=== PATIENT | female | born 1950 | race Caucasian/White ===

== ENCOUNTER 2018-11-12 14:13 | Outpatient (CLI) | payer MEDICARE, OTHER ==
[~2018-11-12] VITALS: Ht 154.9 cm; Wt 62.6 kg
[2018-11-12 14:47] VITALS: BP 132/48
[2018-11-12] MEDS ORDERED: ASPIRIN EC81 MG ORAL (14:57)
[2018-11-12] MEDS ORDERED: SIMVASTATIN10 MG ORAL (14:57)
[2018-11-12] MEDS ORDERED: DEXILANT60 MG ORAL (14:57)
--- NOTE | 2018-11-14 17:00 | Consultation ---
DATE OF CONSULTATION: 11/13/2018 CHIEF COMPLAINT: Gastric polyps. HISTORY OF PRESENT ILLNESS: This is a very pleasant 68-year-old female, who had endoscopy by Dr. Dinh, who had multiple large gastric polyps over centimeter. The patient was referred to us for possible endoscopy and polypectomy. PAST MEDICAL HISTORY: 1. Hypercholesterolemia. 2. Chronic GERD. 3. Gastric polyps. PAST SURGICAL HISTORY: None. MEDICATIONS: Currently on Dexilant, simvastatin, and aspirin. ALLERGIES: Codeine. FAMILY HISTORY: Mother had cancer. Sister has gastric cancer. SOCIAL HISTORY: The patient denies any tobacco, alcohol, or illicit drug abuse. REVIEW OF SYSTEMS: A 10-point review of systems was performed and pertinent positives in HPI. PHYSICAL EXAMINATION: VITAL SIGNS: Temperature 98.2, blood pressure is 132/48, pulse is 61, and respirations of 20. HEENT: Normocephalic and atraumatic. Sclerae are anicteric. NECK: Supple. No obvious evidence of lymphadenopathy. CARDIOVASCULAR: Regular rate and rhythm. Plus S1 and S2. No obvious murmur. LUNGS: Clear to auscultation bilaterally. ABDOMEN: Positive bowel sounds. Soft and nontender. No rebound. No guarding. No peritoneal sign. EXTREMITIES: No cyanosis. No clubbing. No edema. ASSESSMENT AND PLAN: A 68-year-old female with past medical history of sibling with a gastric cancer now with multiple fundic gland polyps, large ones, needs a polypectomy. Risks and benefits of procedure was explained to the patient and she agreed to it. So, we are going to plan to schedule for endoscopy and polypectomy. I want to thank, Dr. Dinh, for this kind referral. Keith Alfaro M.D. DR: KEITH JOB#: [id number] CC: Baljeet Dinh M.D.
== END 2018-11-12 14:43 | disposition home or self-care (01) ==
LOC: PAN 14:13
DX: K31.7 Polyp of stomach and duodenum (principal); E78.00 Pure hypercholesterolemia, unspecified; K21.9 Gastro-esophageal reflux disease without esophagitis

== ENCOUNTER 2018-11-26 10:09 | Day surgery (SDC) | payer MEDICARE, OTHER ==
[2018-11-26] VITALS (7 sets, daily range): BP systolic 137–148; BP diastolic 66–77
[~2018-11-26] VITALS: Ht 154.9 cm; Wt 61.7 kg
--- NOTE | 2018-11-26 09:42 | Anethesia Preoperative Eval ---
Anesthesia Pre-op PMH/ROS General Date of Evaluation: Nov 26, 2018 Time of Evaluation: 09:40 Anesthesiologist: gabriele ASA Score: ASA 2 Mallampati Score Class I : Soft palate, uvula, fauces, pillars visible Class II: Soft palate, uvula, fauces visible Class III: Soft palate, base of uvula visible Class IV: Only hard plate visible Mallampati Classification: Class II Surgeon: tia Diagnosis: gerd Surgical Procedure: egd Anesthesia History: none Social History: smoking - nonsmoking Family History: no anesthesia problems Allergies: Coded Allergies: LATEX (Verified Allergy, Intermediate, 11/25/18) ITCHING, HIVES SHELLFISH DERIVED (Verified Allergy, Intermediate, 11/25/18) HIVES CODEINE (Verified Adverse Reaction, Mild, 11/25/18) DIZZINESS, NAUSEA Medications: see eMAR Patient NPO?: Yes Past Medical History Cardiovascular: Reports: other - hypercholesterolemia Gastrointestinal/Genitourinary: Reports: GERD Neurologic/Psychiatric: Reports: other - vertigo, headache Anesthesia Pre-op Phys. Exam Physician Exam Last Vital Signs Date Time Temp Pulse Resp B/P (MAP) Pulse Ox O2 Delivery O2 Flow Rate FiO2 11/26/18 10:44 Room Air 11/26/18 10:39 98.0 62 18 145/70 99 Constitutional: NAD Neurologic: CN 2-12 intact Cardiovascular: RRR Respiratory: CTA Gastrointestinal: S/NT/ND Airway Exam Mallampati Score: Class II MO: limited Neck: flexible TMD: 2fb ROM: limited Teeth: missing Dentures: upper Anesthesia Pre-op A/P Studies Pre-op Studies: EKG - sinus bradycardia Risk Assessment & Plan Assessment: asa2 Plan: mac Status Change Before Surgery: No Pre-Antibiotics Drug: Ernestine Mark MD Nov 26, 2018 09:42
[~2018-11-26 10:09] MED LIST: ASPIRIN EC81 MG ORAL; Atropine Inj 1mg/10ml Syr IV PRN; DEXILANT60 MG ORAL; DiphenhydrAMINE 50mg/ml Inj IVP PRN; Midazolam 2mg/2ml Inj IVP PRN; SIMVASTATIN10 MG ORAL; VITAMIN D1000 UNI1 ORAL; fentaNYL 100 mcg/2 mL IV PRN
[2018-11-26] MEDS ORDERED: FISH OIL CAP1000 MG ORAL (10:42)
[2018-11-26] MEDS ORDERED: COQ1050 MG PO (10:42)
[2018-11-26] MEDS ORDERED: Propofol 200mg/20ml IV ONE (11:30)
[2018-11-26] MEDS ORDERED: Lidocaine 1% MPF 10mg/ml 5ml ONE (11:30)
--- NOTE | 2018-11-26 11:40 | NUR ---
LATEX FREE ENVIRONMENT MAINTAINED
--- NOTE | 2018-11-26 12:04 | Short Stay Surgery H&P ---
History of Present Illness History of Present Illness Chief Complaint see recent office note HPI Niharika Bentley is a 68 year old female who was admitted on for Gerd, Gastric Polyps Patient History Allergies: Coded Allergies: LATEX (Verified Allergy, Intermediate, 11/25/18) ITCHING, HIVES SHELLFISH DERIVED (Verified Allergy, Intermediate, 11/25/18) HIVES CODEINE (Verified Adverse Reaction, Mild, 11/25/18) DIZZINESS, NAUSEA Medication History Scheduled Aspirin Ec* (Aspirin Ec*), 81 MG ORAL DAILY, (Reported) Cholecalciferol (Vitamin D3)* (Vitamin D*), 1,000 UNIT ORAL DAILY, (Reported) Dexlansoprazole (Dexilant), 60 MG ORAL DAILY, (Reported) Fish Oil (Fish Oil 1,000 mg Capsule), 1,000 MG ORAL DAILY, (Reported) Simvastatin (Zocor), Unknown Dose ORAL BEDTIME, (Reported) Ubidecarenone (Coq10), 50 MG PO DAILY, (Reported) Physical Exam Vital Signs Last Vital Signs Date Time Temp Pulse Resp B/P (MAP) Pulse Ox O2 Delivery O2 Flow Rate FiO2 11/26/18 10:44 Room Air 11/26/18 10:39 98.0 62 18 145/70 99 Plan Attestation Are the patient's medical conditions optimized for surgery? Keith Alfaro MD Nov 26, 2018 12:04
--- NOTE | 2018-11-26 12:04 | Pre-Procedure Note/Attestation ---
Pre-Procedure Note/Attestation Complete Prior to Procedure Planned Procedure: not applicable Procedure Narrative: egd Indications for Procedure Pre-Operative Diagnosis: gastric polyp Attestation I attest that I discussed the nature of the procedure; its benefits; risks and complications; and alternatives (and the risks and benefits of such alternatives ), prior to the procedure, with the patient (or the patient's legal textile machinery sales representative). I attest that, if there was a reasonable possibility of needing a blood transfusion, the patient (or the patient's legal textile machinery sales representative) was given the [facility] standardized written summary, pursuant to the Elvis Dany Blood Safety Act ([place] Health and Safety Code # 1645, as amended). I attest that I re-evaluated the patient just prior to the surgery and that there has been no change in the patient's H&P, except as documented below: Keith Alfaro MD Nov 26, 2018 12:04
--- NOTE | 2018-11-26 12:16 | Endoscopy Procedure Note ---
Endoscopy Procedure Note General Indication for Procedure: gastric polyp Procedures Performed: EGD Operative Findings/Diagnosis: same Specimen: yes Pt Tolerated Procedure Well: Yes Estimated Blood Loss: none Anesthesia Anesthesiologist: darien Anesthesia: MAC Inserted Devices Implant(s) used?: No GI Core Measures 50 yrs or older w/o bx or poly: Not Applicable 10yrs. F/U not recommended: Not Applicable Keith Alfaro MD Nov 26, 2018 12:16
--- NOTE | 2018-11-26 12:48 | Immediate Post-Op Evaluation ---
Immediate Post-Op Evalulation Immediate Post-Op Evalulation Procedure: egd w/bx Date of Evaluation: Nov 26, 2018 Time of Evaluation: 12:42 IV Fluids: 150ml 0.9ns Blood Products: none Estimated Blood Loss: negligible Blood Pressure Systolic: 133 Blood Pressure Diastolic: 70 Pulse Rate: 58 Respiratory Rate: 18 O2 Sat by Pulse Oximetry: 100 Temperature (Fahrenheit): 97.0 Pain Score (1-10): 0 Nausea: No Vomiting: No Complications none Patient Status: awake, reacts, patent Hydration Status: adequate Drug: Ernestine Mark MD Nov 26, 2018 12:48
--- NOTE | 2018-11-26 12:49 | 48 Hour Post Anesthesia Eval ---
Post Anesthesia Evaluation Procedure: egd w/bx Date of Evaluation: Nov 26, 2018 Time of Evaluation: 12:44 Blood Pressure Systolic: 148 0: 70 Pulse Rate: 53 Respiratory Rate: 18 Temperature (Fahrenheit): 97.0 O2 Sat by Pulse Oximetry: 100 Airway: patent Nausea: No Vomiting: No Pain Intensity: 0 Hydration Status: adequate Cardiopulmonary Status: stable Mental Status/LOC: patient returned to baseline Post-Anesthesia Complications: none Follow-up care needed: N/A Ernestine Orona MD Nov 26, 2018 12:49
--- NOTE | 2018-11-26 19:45 | Procedure Note ---
DATE OF PROCEDURE: 11/26/2018 SURGEON: Keith Alfaro M.D. REFERRING PHYSICIAN: Dr. Dinh. PROCEDURE: Upper endoscopy with gastric polypectomy. ANESTHESIA: Per Dr. Flynn. INSTRUMENT: Olympus adult flexible upper endoscope. INDICATION: Gastric polyp. REASON FOR PROCEDURE: The procedure, risks, benefits, and possible consequences, including hemorrhage, aspiration, perforation and infection, and alternative treatments, were explained to the patient/legal guardian by Dr. Keith Alfaro and the patient/legal guardian understood and accepted these risks. PROCEDURE IN DETAIL: After informed consent was obtained and the patient was adequately sedated, Olympus upper endoscope was advanced from mouth into the second portion of the duodenum and retroflexion was performed in the stomach. The patient had numerous polyps in the stomach highly suspicious for fundic gland polyps. The largest one was roughly about little bit over 1 cm. At this time, we started our snare polypectomy technique, we removed three, the largest one that we could see. I think each were about 1 cm. All three of them were collected and sent to the pathology. The patient tolerated the procedure very well without any complication. SUMMARY OF FINDINGS: Multiple gastric polyps, highly suspicious for fundic gland polyps, status post polypectomy of three of them. RECOMMENDATIONS: Follow up pathology. I will make further recommendation after the pathology is back. I want to thank Dr. Dinh for this kind referral. Keith Alfaro M.D. DR: KYA JOB#: [id number] CC: Dr. Dinh
== END 2018-11-26 13:20 | disposition home or self-care (01) ==
LOC: GAS 10:09
DX: K31.7 Polyp of stomach and duodenum (principal); K21.9 Gastro-esophageal reflux disease without esophagitis; Z88.6 Allergy status to analgesic agent; Z91.040 Latex allergy status; Z91.013 Allergy to seafood; Z79.82 Long term (current) use of aspirin; E78.00 Pure hypercholesterolemia, unspecified; R00.1 Bradycardia, unspecified
CPT/HCPCS: 43251; J2704; 94003; 94150